=== PATIENT | female | born 1940 | race Caucasian/White ===

== ENCOUNTER 2016-12-10 08:06 | Observation (INO) | payer MEDICARE, BC ==
--- NOTE | ~2016-12-10 | HP ---
History And Physical [id number] [place]. [address] NAME: PHILLIP LYONS : 42 STATUS : ADM [facility] PAT#: [id number] AGE: 76 ADM/REG DATE : 12/10/16 MR#: [id number] REPORT SERV DATE: 12/10/16 DICTATED BY: CAESAR BARROS DATE: 12/10/16 REPORT STATUS : Draft TRANSCRIBED BY: GABRIELLA DATE: 12/10/16 DATE OF ADMISSION: 12/10/2016 [employer]ER: Saturnino Ramirez M.D. CHIEF COMPLAINT: Palpitations with uncomfortable sensation in chest. HISTORY OF PRESENT ILLNESS: A very pleasant 76-year-old white female with no known history of CAD but with multiple episodes of PAF, on propafenone, beta-jagdeep, and Xarelto. The patient states that she woke up this morning around 0500 hours. She was getting up to get ready for her day and she developed palpitations and some subtle chest heaviness described as "uncomfortable tightness," which is relieved at the time of interview. The patient reports associated nausea, diaphoresis, and belching. Denies any shortness of breath or dizziness. The patient reports a personal history of TIA with no residual deficit. Denies history of heart attack, PE, or DVT. The patient denies any recent fever or chills. Reports recent palpitations this morning. No syncopal episodes. Denies PND or orthopnea. CHADS-VASc score of 6 for age, gender, hypertension, and previous TIA. PAST MEDICAL HISTORY: 1. PAF, on Xarelto, propafenone, and beta-jagdeep. 2. Hypertension. 3. Dyslipidemia. 4. Denies diabetes. 5. History of TIA with no deficit. 6. Hypothyroid, on replacement. 7. History of nephrolithiasis. 8. Positive family history for early CAD. 9. Remote tobacco abuse. PAST SURGICAL HISTORY: 1. Appendectomy. 2. Cataract repair. 3. Bilateral knee repair, arthroscopic. 4. Lumbar diskectomy. 5. Bilateral rotator cuff. 6. Bladder tack. 7. Foot surgery. 8. Breast biopsies, benign. 9. Bilateral carpal tunnel. SOCIAL HISTORY: She is with two children. 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 Does not have a structured exercise routine. Quit smoking 25 years ago. Denies alcohol or illicits. FAMILY HISTORY: Father at the age of 58 of a heart attack. Mother at 81 of COPD. History And Physical [address] [place]. [address] NAME: PHILLIP LYONS : 42 STATUS : ADM Hilton PAT#: [id number] AGE: 76 ADM/REG DATE : 12/10/16 MR#: [id number] REPORT SERV DATE: 12/10/16 DICTATED BY: CAESAR BARROS DATE: 12/10/16 REPORT STATUS : Draft TRANSCRIBED BY: GABRIELLA DATE: 12/10/16 REVIEW OF SYSTEMS: A 14-point review of systems is performed significant for HPI including on Xarelto for atrial fibrillation and history of stroke. Reports has not missed any doses. Otherwise, complete review of systems is obtained and negative. ALLERGIES: LISINOPRIL, ITCHING. ADHESIVE TAPE, SKIN TEAR. HOME MEDICATIONS: Levothyroxine 150 mcg on Thursday, Thursday, Thursday, , Thursday, Thursday, and 225 on Thursday; pravastatin 10 mg daily; propafenone 300 mg twice daily; losartan 100 mg daily; metoprolol succinate 25 mg twice daily; Xarelto 20 mg at bedtime; Xanax 0.5 mg daily and 0.25 to 0.5 at bedtime; melatonin 5 mg nightly; Nexium 20 mg daily; aspirin 81 mg daily; vitamin B12 at 1000 mcg daily; Caltrate 600 mg daily; artificial tears. PHYSICAL EXAMINATION: BLOOD PRESSURE: 138/90, PULSE: 110, RESPIRATORY RATE: 20, TEMPERATURE: 97.6, O2 saturation 96% on 2 liters. HEIGHT: 5 feet 2 inches, WEIGHT: 213 pounds (stated). GENERAL: Cooperative, in no apparent distress. HEENT: Pupils 2 mm, sclera nonicteric. Nares patent. Moist mucous membranes. No xanthelasma. NECK: Trachea midline, no thyromegaly. No JVD. No bruits. LYMPH: No cervical lymphadenopathy. No supraclavicular lymphadenopathy. RESPIRATORY: Unlabored respirations. Breath sounds clear bilaterally to posterior auscultation. No wheezes or rhonchi. CARDIOVASCULAR: Irregularly irregular rate with a variable S1 and S2. ABDOMEN: Obese, soft, nontender, nondistended, normal bowel sounds auscultated throughout. No organomegaly. SKIN: Warm, dry extremities. No pallor, or cyanosis. PSYCHIATRIC: Appropriate affect. Alert, oriented x3. LABORATORY DATA: Troponin less than 0.02, potassium 4.4, BUN 26, creatinine 1.05, glucose 113, magnesium 2.1. BNP 167.9. WBC of 7.4, hemoglobin 13.3, hematocrit 39.8, and platelet count 226,000. IMAGING: EKG: Atrial fibrillation with RVR. Echo in 02/2014: EF 60%. No significant chamber hypertrophy or dilatation found. MPI in 04/2013: No ischemia. Catheterization in 1998, negative per report. ASSESSMENT AND PLAN: 1. Atrial fibrillation with rapid ventricular response. The patient has been seen in the emergency room and the case is discussed with Dr. Bustillos. The patient will be held n.p.o. for a DC CV today with Dr. Bustillos around 1230 hours. The patient is reluctant to have a cardioversion as she has always reverted to sinus rhythm on her own. The patient requests attempt with increased dose of propafenone, which was done on her last History And Physical [address] [address] NAME: PHILLIP LYONS : 42 STATUS : ADM [facility] PAT#: [id number] AGE: 76 ADM/REG DATE : 12/10/16 MR#: [id number] REPORT SERV DATE: 12/10/16 DICTATED BY: CAESAR BARROS DATE: 12/10/16 REPORT STATUS : Draft TRANSCRIBED BY: MODGrover DATE: 12/10/16 hospitalization. Plan of care is discussed with Dr. Bustillos. EKG reviewed. Propafenone 600 mg will be provided now with repeat 300 mg dose in two hours if she has not converted to sinus rhythm. Continue Xarelto. The patient will be kept n.p.o. for possible DC CV today versus ibutilide pharmacologic conversion later today. The patient will be discharged home if successfully cardioverted, to follow up with her PCP and Dr. Ramirez as appropriate. The patient has been instructed not to drive for 24-48 hours after any procedure. 2. NOAC, continue Xarelto, follow up with Cardiology. 3. Hypertension, monitor blood pressure and continue home medications. 4. Dyslipidemia, continue statin. NED/MODL JOHN Tejada, WAREHOUSE DISTRIBUTION MANAGER- / [id number] CC: JOHN Tejada, WAREHOUSE DISTRIBUTION MANAGER- Hermes Nichols Jr., M.D.
[2016-12-10 07:37] LABS: BASOPHILS 0.1 %; BASOPHILS ABSOLUTE 0.01 10/3/uL (0.0-0.16); EOSINOPHILS ABSOLUTE 0.22 10/3/uL (0.0-0.53); HEMATOCRIT 39.8 % (36.0-48.0); HEMOGLOBIN 13.3 g/dL (12.0-16.0); IMMATURE GRANULOCYTES 0.1 %; IMMATURE GRANULOCYTES ABSOLUTE 0.01 10/3/uL (0.0-0.11); LYMPHOCYTES 22.3 %; LYMPHOCYTES ABSOLUTE 1.65 10/3/uL (0.67-4.30); MANUAL DIFF NO %; MEAN CORPUS HGB CONC 33.4 g/dL (32.0-36.0); MEAN CORPUSCULAR HEMOGLOB 27.4 pg (26.0-34.0); MEAN CORPUSCULAR VOLUME 81.9 fL (80-100); MONOCYTES ABSOLUTE 0.67 10/3/uL (0.21-1.20); NEUTROPHILS 65.5 %; NEUTROPHILS ABSOLUTE 4.85 10/3/uL (2.02-8.40); PLATELET COUNT 226 10/3/uL (150-400); RBC DISTRIBUTION WIDTH 13.1 % (12.0-16.0); RED CELL COUNT 4.86 10/6/uL (4.0-5.6); WHITE BLOOD CELLS 7.4 10/3/uL (4.5-10.5)
[2016-12-10 07:45] LABS: INTERNATIONAL NORMAL RATI 1.2 UNITS (-); PROTIME (NOT ORD) 14.9 SEC (12.0-14.5)
[2016-12-10 07:46] LABS: PARTIAL THROMBO TIME 27.8 SEC (22.5-37.2)
[2016-12-10 07:52] LABS: CALCIUM, SERUM 9.1 MG/DL (8.5-10.4); CHEST PAIN PROFILE TAT 0 Hrs 21 Mins; CHLORIDE, SERUM 111 MMOL/L (96-112); CO2 (CARBON DIOXIDE) 26 MMOL/L (24-34); CREATININE 1.05 MG/DL (0.55-1.02); GFR AFRICAN AMERICAN 60 ML/MIN (>=60); GFR NON AFRICAN AMERICAN 52 ML/MIN (>=60); POTASSIUM, SERUM 4.4 MMOL/L (3.5-5.3); SODIUM, SERUM 143 MMOL/L (135-148); TROPONIN I <0.02 NG/ML (<0.05)
[2016-12-10 07:53] LABS: BUN (BLOOD UREA NITROGEN) 26 MG/DL (6-23); GLUCOSE, SERUM 113 MG/DL (60-99)
[~2016-12-10 08:06] MED LIST: ASAB PO; ASTELIN NAS; CALTRAT600 PO; COZAAR100 MG PO; CYANO1000T PO; CYTO25 PO; FLONASE NAS; HALF81 PO; HUMI PO; HYDROCHLOROT12.5 MG PO; LEVAQUIN5T PO; LEVOTHYROXIN137 MCG PO; LOP25 PO; MCZ25 PO; MELA3 PO; MELATONIN1 M1 PO; METHOC500B PO; MOBIC7.5 PO; NATURA2 OP; NEXIUM20 M1 PO; OS500+D PO; PRAV10 PO; PRIN10 PO; REFRESH OPH; RESTORIL30 MG PO; RYTHMOL150 MG PO; RYTHMOL225 MG PO; RYTHMOL300 MG PO; SYMBICORT 160/41 INH INH; SYN.15 PO; SYN1 PO; SYN112 PO; SYNTHROID137 MCG PO; TEARS NATURA OPH; TESS PO; TIROSINT150 MCG PO; TOPXL25 PO; VALTREX5 PO; VITAMIN B-121000 MC1 SL; VITAMIN D1000 UNI1 PO; VITAMIN D2000 UNIT PO; VITAMIN D31000 UNIT PO; X25 PO; X5 PO; XARELTO20 MG PO; ZEGERID1 CAP PO
[2016-12-10] MEDS ORDERED: SYN.15 PO (08:36)
[2016-12-10] MEDS ORDERED: SYN.025B PO (08:37)
[2016-12-10] MEDS ORDERED: PRAV10 PO (08:37)
[2016-12-10] MEDS ORDERED: RYTHMOL300 MG PO (08:37)
[2016-12-10] MEDS ORDERED: COZAAR100 MG PO (08:37)
[2016-12-10] MEDS ORDERED: XARELTO20 MG PO (08:38)
[2016-12-10] MEDS ORDERED: TOPXL25 PO (08:38)
[2016-12-10] MEDS ORDERED: NEXIUM20 M1 PO (08:39)
[2016-12-10] MEDS ORDERED: MELATONIN5 M1 PO (08:39)
[2016-12-10] MEDS ORDERED: X5 PO (08:39)
[2016-12-10] MEDS ORDERED: X25 PO (08:39)
[2016-12-10] MEDS ORDERED: REFRESH OPH SO0.3 ML OPH (08:40)
[2016-12-10] MEDS ORDERED: CALTRA600D PO (08:40)
[2016-12-10] MEDS ORDERED: CYANO1000T PO (08:40)
[2016-12-10] MEDS ORDERED: ASAB PO (08:40)
[2017-02-26] MEDS ORDERED: RYTHMOL300 MG PO (01:01)
[2017-02-26] MEDS ORDERED: X5 PO (01:02)
[2017-02-26] MEDS ORDERED: X25 PO (01:04)
[2017-02-26] MEDS ORDERED: ASAB PO (01:04)
[2017-02-26] MEDS ORDERED: CALCIUM PO (01:05)
[2017-02-26] MEDS ORDERED: NEXIUM20 M1 PO (01:05)
[2017-02-26] MEDS ORDERED: VIT D OTC PO (01:05)
[2017-02-26] MEDS ORDERED: MELATONIN5 M1 PO (01:05)
[2017-02-26] MEDS ORDERED: TOPXL25 PO (01:06)
[2017-02-26] MEDS ORDERED: COZAAR100 MG PO (01:06)
[2017-02-26] MEDS ORDERED: PRAV10 PO (01:07)
[2017-02-26] MEDS ORDERED: SYN.15 PO (01:08)
[2017-02-26] MEDS ORDERED: SYN075 PO (01:08)
[2017-02-26] MEDS ORDERED: XARELTO20 MG PO (01:09)
[2017-02-26] MEDS ORDERED: CALTRA600D PO (01:10)
[2017-02-26] MEDS ORDERED: REFRESH OPH (01:10)
[2017-03-05] MEDS ORDERED: ZOLOFT25 MG PO (13:11)
== END 2016-12-10 14:14 | disposition home or self-care (01) ==
LOC: ER 08:06 → CDU1 09:23 → CDU2 09:33
PROVIDERS: Nurse Practitioner
DX: I48.0 Paroxysmal atrial fibrillation (principal); I10 Essential (primary) hypertension; E78.5 Hyperlipidemia, unspecified; E03.9 Hypothyroidism, unspecified; Z79.01 Long term (current) use of anticoagulants; Z86.73 Personal history of transient ischemic attack (TIA), and cerebral infarction without residual deficits; Z82.49 Family history of ischemic heart disease and other diseases of the circulatory system; Z87.891 Personal history of nicotine dependence; Z88.8 Allergy status to other drugs, medicaments and biological substances; Z79.52 Long term (current) use of systemic steroids; Z79.82 Long term (current) use of aspirin; Z79.899 Other long term (current) drug therapy; Z87.442 Personal history of urinary calculi; Z98.890 Other specified postprocedural states; Z90.49 Acquired absence of other specified parts of digestive tract; Z98.49 Cataract extraction status, unspecified eye
CPT/HCPCS: 71010; 80048; 83735; 83880; 84484; 85025; 85610; 85730; 93005; 96374; 96375; 99285; A9270-GY; G0378; J2405

== ENCOUNTER 2017-01-02 22:00 | Emergency (ER) | payer MEDICARE, BC ==
[2017-01-02 21:46] LABS: BASOPHILS 0.2 %; BASOPHILS ABSOLUTE 0.02 10/3/uL (0.0-0.16); EOSINOPHILS 2.2 %; EOSINOPHILS ABSOLUTE 0.19 10/3/uL (0.0-0.53); ER CBC TAT 0 Hrs 03 Mins; HEMATOCRIT 39.7 % (36.0-48.0); HEMOGLOBIN 13.1 g/dL (12.0-16.0); IMMATURE GRANULOCYTES 0.4 %; IMMATURE GRANULOCYTES ABSOLUTE 0.03 10/3/uL (0.0-0.11); LYMPHOCYTES ABSOLUTE 1.96 10/3/uL (0.67-4.30); MEAN CORPUSCULAR HEMOGLOB 27.3 pg (26.0-34.0); MEAN CORPUSCULAR VOLUME 82.7 fL (80-100); MONOCYTES 8.8 %; MONOCYTES ABSOLUTE 0.75 10/3/uL (0.21-1.20); NEUTROPHILS 65.4 %; NEUTROPHILS ABSOLUTE 5.57 10/3/uL (2.02-8.40); RBC DISTRIBUTION WIDTH 13.3 % (12.0-16.0); WHITE BLOOD CELLS 8.5 10/3/uL (4.5-10.5)
[2017-01-02 21:47] LABS: MANUAL DIFF NO %; PLATELET COUNT 157 10/3/uL (150-400)
[2017-01-02 21:54] LABS: INTERNATIONAL NORMAL RATI 2.2 UNITS (-)
[2017-01-02 21:56] LABS: PROTIME (NOT ORD) 24.5 SEC (12.0-14.5)
[~2017-01-02 22:00] MED LIST changes: +CALTRA600D PO; +MELATONIN5 M1 PO; +REFRESH OPH SO0.3 ML OPH; +SYN.025B PO
[2017-01-02 22:03] LABS: CALCIUM, SERUM 8.8 MG/DL (8.5-10.4); CHEST PAIN PROFILE TAT 0 Hrs 20 Mins; CHLORIDE, SERUM 110 MMOL/L (96-112); CO2 (CARBON DIOXIDE) 26 MMOL/L (24-34); CREATININE 1.34 MG/DL (0.55-1.02); GFR AFRICAN AMERICAN 45 ML/MIN (>=60); GFR NON AFRICAN AMERICAN 39 ML/MIN (>=60); GLUCOSE, SERUM 113 MG/DL (60-99); POTASSIUM, SERUM 4.2 MMOL/L (3.5-5.3); SODIUM, SERUM 143 MMOL/L (135-148); TROPONIN I <0.02 NG/ML (<0.05)
[2017-01-02 22:09] LABS: BUN (BLOOD UREA NITROGEN) 19 MG/DL (6-23)
[2017-02-26] MEDS ORDERED: RYTHMOL300 MG PO (01:01)
[2017-02-26] MEDS ORDERED: X5 PO (01:02)
[2017-02-26] MEDS ORDERED: ASAB PO (01:04)
[2017-02-26] MEDS ORDERED: X25 PO (01:04)
[2017-02-26] MEDS ORDERED: CALCIUM PO (01:05)
[2017-02-26] MEDS ORDERED: NEXIUM20 M1 PO (01:05)
[2017-02-26] MEDS ORDERED: MELATONIN5 M1 PO (01:05)
[2017-02-26] MEDS ORDERED: VIT D OTC PO (01:05)
[2017-02-26] MEDS ORDERED: COZAAR100 MG PO (01:06)
[2017-02-26] MEDS ORDERED: TOPXL25 PO (01:06)
[2017-02-26] MEDS ORDERED: PRAV10 PO (01:07)
[2017-02-26] MEDS ORDERED: SYN.15 PO (01:08)
[2017-02-26] MEDS ORDERED: SYN075 PO (01:08)
[2017-02-26] MEDS ORDERED: XARELTO20 MG PO (01:09)
[2017-02-26] MEDS ORDERED: REFRESH OPH (01:10)
[2017-02-26] MEDS ORDERED: CALTRA600D PO (01:10)
[2017-03-05] MEDS ORDERED: ZOLOFT25 MG PO (13:11)
== END 2017-01-03 02:15 | disposition home or self-care (01) ==
LOC: ER 22:00
PROVIDERS: Emergency Medicine
DX: K20.9 Esophagitis, unspecified (principal); I10 Essential (primary) hypertension; I48.91 Unspecified atrial fibrillation; Z86.73 Personal history of transient ischemic attack (TIA), and cerebral infarction without residual deficits; N39.0 Urinary tract infection, site not specified; F17.200 Nicotine dependence, unspecified, uncomplicated; Z88.8 Allergy status to other drugs, medicaments and biological substances; Z91.09 Other allergy status, other than to drugs and biological substances; Z79.82 Long term (current) use of aspirin; Z79.899 Other long term (current) drug therapy
CPT/HCPCS: 71020; 80048; 83735; 84484; 85025; 85610; 85730; 93005; 99285; A9270-GY

== ENCOUNTER 2017-01-07 10:53 | Emergency (ER) | payer MEDICARE, BC ==
[2017-01-07 13:09] LABS: BUN (BLOOD UREA NITROGEN) 24 MG/DL (6-23); CALCIUM, SERUM 8.6 MG/DL (8.5-10.4); CHLORIDE, SERUM 108 MMOL/L (96-112); CO2 (CARBON DIOXIDE) 26 MMOL/L (24-34); CREATININE 1.88 MG/DL (0.55-1.02); GFR AFRICAN AMERICAN 30 ML/MIN (>=60); GFR NON AFRICAN AMERICAN 26 ML/MIN (>=60); GLUCOSE, SERUM 98 MG/DL (60-99); POTASSIUM, SERUM 4.3 MMOL/L (3.5-5.3); SODIUM, SERUM 142 MMOL/L (135-148)
[2017-01-07 13:13] LABS: ASCORBIC ACID (UR NOT ORDER) NEG (NEG); BILIRUBIN, URINE SMALL (NEG); ER URINALYSIS TAT 0 Hrs 21 Mins; KETONE, URINE TRACE MG/DL (NEG); LEUKOCYTE ESTERASE(NOT OR MOD (NEG)
[2017-01-07 13:14] LABS: NITRITE (URINE) NEG (NEG); WBC (NOT ORDERED) (RFLEX) > 182 (0-5)
[2017-02-26] MEDS ORDERED: RYTHMOL300 MG PO (01:01)
[2017-02-26] MEDS ORDERED: X5 PO (01:02)
[2017-02-26] MEDS ORDERED: X25 PO (01:04)
[2017-02-26] MEDS ORDERED: ASAB PO (01:04)
[2017-02-26] MEDS ORDERED: VIT D OTC PO (01:05)
[2017-02-26] MEDS ORDERED: CALCIUM PO (01:05)
[2017-02-26] MEDS ORDERED: NEXIUM20 M1 PO (01:05)
[2017-02-26] MEDS ORDERED: MELATONIN5 M1 PO (01:05)
[2017-02-26] MEDS ORDERED: TOPXL25 PO (01:06)
[2017-02-26] MEDS ORDERED: COZAAR100 MG PO (01:06)
[2017-02-26] MEDS ORDERED: PRAV10 PO (01:07)
[2017-02-26] MEDS ORDERED: SYN.15 PO (01:08)
[2017-02-26] MEDS ORDERED: SYN075 PO (01:08)
[2017-02-26] MEDS ORDERED: XARELTO20 MG PO (01:09)
[2017-02-26] MEDS ORDERED: CALTRA600D PO (01:10)
[2017-02-26] MEDS ORDERED: REFRESH OPH (01:10)
[2017-03-05] MEDS ORDERED: ZOLOFT25 MG PO (13:11)
== END 2017-01-07 15:40 | disposition home or self-care (01) ==
LOC: ER 10:53
PROVIDERS: Emergency Medicine
DX: N39.0 Urinary tract infection, site not specified (principal); E86.0 Dehydration; I10 Essential (primary) hypertension; I48.91 Unspecified atrial fibrillation; K21.9 Gastro-esophageal reflux disease without esophagitis; F41.9 Anxiety disorder, unspecified; G47.30 Sleep apnea, unspecified; Z86.73 Personal history of transient ischemic attack (TIA), and cerebral infarction without residual deficits; Z87.891 Personal history of nicotine dependence; Z88.8 Allergy status to other drugs, medicaments and biological substances; Z79.82 Long term (current) use of aspirin; Z79.899 Other long term (current) drug therapy
CPT/HCPCS: 80048; 81001; 87077; 87086; 87186; 96374; 99284